=== PATIENT | male | born 1995 | race Caucasian/White ===

== ENCOUNTER 2021-02-02 08:42 | Emergency (ER) | payer SELFPAY ==
[2021-02-02 08:46] VITALS: BP 128/73; PULSE 85; RESP 18; TEMP 36.5; O2SAT 98
--- NOTE | 2021-02-02 08:54 | ED.BACK ---
HPI - Back Pain/Injury General Chief Complaint: Back Pain/Injury Stated Complaint: Back Pain Time Seen by Provider: 02/02/21 08:54 Source: patient, RN notes reviewed and old records reviewed Mode of arrival: ambulatory Limitations: no limitations History of Present Illness HPI Narrative: 25-year-old male presents to the [facility] with complaints of left lower back pain. Patient states on Tuesday, 3 days ago was dragging a deer out of the wood when he felt a pull in his back. Denies abdominal pain or chest pain. No numbness or tingling in his extremities. No loss or retention of bowel or bladder. No saddle anesthesia. Related Data Allergies Allergy/AdvReac Type Severity Reaction Status Date / Time Penicillins Allergy Unknown Swelling Verified 02/02/21 08:48 of Lip/Tongue/Throat Review of Systems Review of Systems: All systems reviewed & are unremarkable except as noted in HPI and below Constitutional: Constitutional: Reports no additional constitutional complaints, Denies chills and Denies fever(s) Eyes: Eyes: Reports no additional eye complaints ENT: Reports system reviewed and no additional complaints, except as documented Cardiovascular: Cardiovascular: Reports no additional cardiovascular complaints, Denies chest pain and Denies radiating jaw, neck or arm pain Respiratory: Respiratory: Reports no additional respiratory complaints, Denies cough and Denies dyspnea Gastrointestinal: Gastrointestinal: Reports no additional gastrointestinal complaints Genitourinary: Genitourinary: Reports no additional male genitourinary complaints, Denies oliguria, Denies urinary frequency and Denies urinary incontinence Musculoskeletal: Musculoskeletal: Reports as per HPI and Reports back pain Integumentary/Breasts: Skin/Breast: Reports system reviewed and no additional complaints, except as docu Neurologic: Reports system reviewed and no additional complaints, except as documented Psychiatric: Psychiatric: Reports no additional psychiatric complaints Allergic/Immunologic: Allergic/Immunologic: Reports no additional allergic/immunologic complaints PMF Past Medical History Medical History Anxiety Depression Enlarged adenoids Previous known suicide attempt Self-mutilation Cutter Tonsillitis Surgical History Surgical History History of tonsillectomy Social History Social History Smoking status: Current every day smoker Alcohol intake: never Substance use: current Substance use type: marijuana Comments At the time of my signature, I reviewed and agree with the nursing past medical, surgical, social, and family history. There is no relevant family history pertinent to the patient complaint. Exam Const: General: healthy appearing, no acute distress and alert Nutritional Appearance: well nourished Orientation/consciousness: patient oriented x3 Limitations: no limitations HENMT: Head: normal to inspection Ears: external ears normal Eyes: Pupils: Equal, round and reactive pupils present Neck: Neck: normal visual inspection, no lymphadenopathy and no meningeal signs Chest: Chest palpation & inspection: normal inspection of the chest Resp: Effort & Inspection: normal respiratory effort Auscultation: clear to auscultation bilaterally Cardio: Rate: regular rate Rhythm: regular rhythm GI: GI Palp: Yes Soft to palpation, No Tenderness to palpation present (GI), No Guarding due to palpation present (GI) and No Rigid due to palpation Back/Spine/Pelvis: Back: no CVA tenderness Cervical Spine: normal cervical lordosis Thoracic/Lumbar Spine: thoracic and lumbar spine normal to inspection, thoraco-lumbar spasm on the left and on the left greater than right, No lumbar spinal tenderness and straight leg raise positive (Pain with lifting left leg left lumbar
== END 2021-02-02 09:07 | disposition home or self-care (01) ==
PROVIDERS: Emergency Provider Nurse Practitioner
DX: S39.012A Strain of muscle, fascia and tendon of lower back, initial encounter (principal); X50.0XXA Overexertion from strenuous movement or load, initial encounter; F17.200 Nicotine dependence, unspecified, uncomplicated
CPT/HCPCS: 99213; G0463

== ENCOUNTER 2022-09-26 08:16 | Emergency (ER) | payer BC, SELFPAY ==
[2022-09-26 08:27] VITALS: BP 153/87; PULSE 77; RESP 16; TEMP 36.7; O2SAT 99
--- NOTE | 2022-09-26 08:28 | ED.UPPEXIN ---
HPI - Extremity Injury (Upper) General Chief Complaint: Extremity Injury, Upper Stated Complaint: right shoulder pain Time Seen by Provider: 09/26/22 08:21 Source: patient Mode of arrival: ambulatory Limitations: no limitations History of Present Illness HPI narrative: Patient is a 26-year-old male that presents with right neck and shoulder pain for 3 days. Patient states it hurts to turn head to the right or left right arm up. Patient has taken Aleve and ibuprofen with no relief. Denies any weakness, numbness, tingling to arm or hand. Denies any headache, fever, chills, vision changes, nausea, vomiting, diarrhea. Related Data Allergies Allergy/AdvReac Type Severity Reaction Status Date / Time Penicillins Allergy Unknown Swelling Verified 09/26/22 08:22 of Lip/Tongue/Throat Review of Systems Review of Systems: All systems reviewed & are unremarkable except as noted in HPI and below Constitutional: Constitutional: Denies body ache(s), Denies chills, Denies fatigue, Denies fever(s), Denies headache(s), Denies malaise and Denies weakness Eyes: Eyes: Denies blurry vision, Denies irritation and Denies loss of vision ENT: Denies otalgia, Denies headache(s), Denies nasal discharge, Denies sinus pain and Denies sore throat Cardiovascular: Cardiovascular: Denies chest pain, Denies irregular heart rhythm and Denies dyspnea Respiratory: Respiratory: Denies dyspnea Gastrointestinal: Gastrointestinal: Denies abdominal pain, Denies melena, Denies hematochezia, Denies diarrhea, Denies nausea and Denies vomiting Musculoskeletal: Musculoskeletal: Denies back pain, Denies myalgias and Denies arthralgias Integumentary/Breasts: Skin/Breast: Denies pruritus and Denies rash Neurologic: Denies headache(s), Denies loss of vision and Denies weakness Psychiatric: Psychiatric: Reports no additional psychiatric complaints Endocrine: Endocrine: Denies fatigue PMFSH Past Medical History Medical History Anxiety Depression Enlarged adenoids Previous known suicide attempt Self-mutilation Cutter Tonsillitis Surgical History Surgical History History of tonsillectomy Social History Social History (Reviewed 02/02/21 @ 09:08 by GERTRUDE Hardy Smoking status: Current every day smoker Alcohol intake: never Substance use: current Substance use type: marijuana Comments At time of signature, agree with nursing past medical, surgical, social and family history. There is no relevant family history pertinent to the presenting complaint. Exam Const: General: cooperative, healthy appearing, comfortable, no acute distress and well nourished Nutritional Appearance: well nourished Orientation/consciousness: patient oriented x3 Limitations: no limitations HENMT: Head: normal to inspection, normocephalic and atraumatic Ears: hearing grossly normal bilaterally and external ears normal Face/Nose/Sinus: Normal external nose present, normal facial exam and face symmetric Face and sinus: normal facial exam and face symmetric Mouth: Yes lip normal Eyes: General: appearance normal, both eyes and all related structures Alignment and Position: alignment normal and position normal Periorbital: periorbital findings normal Eyelids: eyelids normal Pupils: Equal, round and reactive pupils present EOM: EOMs intact bilaterally Neck: Neck: normal visual inspection, full ROM and supple Chest: Chest palpation & inspection: normal inspection of the chest Resp: Effort & Inspection: normal respiratory effort and able to speak in complete sentences Auscultation: clear to auscultation bilaterally Cardio: Rate: regular rate Rhythm: regular rhythm Heart sounds: S1 normal heart sound present and S2 normal heart sound present GI: Inspection: normal to inspection Back/Spine/Pelvis: Cervical Spine: No cervical muscular tenderness, pain wi
== END 2022-09-26 08:47 | disposition home or self-care (01) ==
PROVIDERS: Emergency Provider Nurse Practitioner Family; PCP Emergency Medicine
DX: M54.12 Radiculopathy, cervical region (principal); F17.200 Nicotine dependence, unspecified, uncomplicated; F12.90 Cannabis use, unspecified, uncomplicated
CPT/HCPCS: 99213; G0463

== ENCOUNTER 2023-09-20 08:40 | Emergency (ER) | payer BC, SELFPAY ==
[2023-09-20 08:58] VITALS: BP 135/79; PULSE 87; RESP 18; TEMP 37.6; O2SAT 99
--- NOTE | 2023-09-20 09:11 | ED.URI ---
HPI - URI/Sore Throat General Chief Complaint: Upper Respiratory Infection Stated Complaint: chills,fever,bodyaches Time Seen by Provider: 09/20/23 09:08 Source: patient and RN notes reviewed Mode of arrival: ambulatory Limitations: no limitations History of Present Illness HPI Narrative: 27-year-old male presents concern for chills, fever, body aches, cough, nasal congestion, rhinorrhea. Reports his test positive for COVID. He took Tylenol, tried NyQuil but he vomited up MD elicited complaint: cough and nasal congestion Related Data Allergies Allergy/AdvReac Type Severity Reaction Status Date / Time Penicillins Allergy Severe Swelling Verified 09/20/23 08:52 of Lip/Tongue/Throat Review of Systems Review of Systems: CONSTITUTIONAL: Reports malaise, chills, sweats, fever. EYES: Denies visual changes, redness, or discharge. ENT: Reports rhinorrhea, congestion, and sore throat. CARDIOVASCULAR: Denies chest pain, palpitations, or edema. RESPIRATORY: Reports cough. Denies dyspnea. GASTROINTESTINAL: Denies abdominal pain, nausea, vomiting, diarrhea SKIN: Denies rash or itching. MUSCULOSKELETAL: Reports myalgia. NEUROLOGIC: Denies headache. All systems reviewed & are unremarkable except as noted in HPI and below PMFSH Past Medical History Medical History Anxiety Depression Enlarged adenoids Previous known suicide attempt Self-mutilation Cutter Tonsillitis Surgical History Surgical History History of tonsillectomy Social History Social History Smoking status: Current every day smoker Alcohol intake: never Substance use: current Substance use type: marijuana Comments At time of signature, agree with nursing past medical, surgical, social and family history. There is no relevant family history pertinent to the presenting complaint Exam Narrative: GENERAL: Nontoxic-appearing, well-nourished, and in no acute distress. HEAD: Normocephalic EYES: PERRLA, conjunctivae clear ENT: Nares clear, clear discharge. Mucous membranes moist. TM pearly palomo with dull light reflex bilaterally; no tragal tenderness. Oropharynx not erythematous without lesions. Tonsils not enlarged and without exudate, no drooling, no hoarseness, no trismus, uvula midline. NECK: Supple. No lymphadenopathy CHEST: Clear to auscultation, breath sounds equal. No wheezing, rhonchi, rales, or stridor. No respiratory distress, speaks in full sentences. HEART: Regular rate and rhythm. No murmur heard. SKIN: Warm, dry, no rash. NEURO: Alert and oriented x3. PSYCH: Normal mood and affect Course Course Emergency Course: Patient is aware of diagnosis, understands and agrees to treatment plan. Anticipatory guidance given. Patient agrees to follow-up as directed and is aware of reasons to seek care at the emergency department. Portions of this record may have been created with voice recognition software Level of Care: Express Care Visit Vital Signs Vital signs: Vital Signs Temperature 99.6 F 09/20/23 08:58 Pulse Rate 87 09/20/23 08:58 Respiratory Rate 18 09/20/23 08:58 Blood Pressure 135/79 09/20/23 08:58 Pulse Oximetry 99 09/20/23 08:58 Oxygen Delivery Room Air 09/20/23 08:58 Temperature 99.6 F 09/20/23 08:58 Pulse Rate 87 09/20/23 08:58 Respiratory Rate 18 09/20/23 08:58 Blood Pressure 135/79 09/20/23 08:58 Pulse Oximetry 99 09/20/23 08:58 Oxygen Delivery Room Air 09/20/23 08:58 Reviewed. MDM - URI/Sore Throat MDM Narrative Medical decision making narrative: Differential diagnosis considered: Oneal virus, strep pharyngitis, allergic rhinitis, upper respiratory tract infection, sinusitis, rhinosinusitis, nasopharyngitis. viral pharyngitis, otitis media, otitis externa, pneumonia, bronchitis, viral cough syndrome, dianelys
[2023-09-20 09:44] LABS: EDINFLUASCREEN Negative; EDINFLUBSCREEN Negative
== END 2023-09-20 09:22 | disposition home or self-care (01) ==
PROVIDERS: Emergency Provider Nurse Practitioner
DX: U07.1 COVID-19 (principal); F17.200 Nicotine dependence, unspecified, uncomplicated; F12.90 Cannabis use, unspecified, uncomplicated
CPT/HCPCS: 87426; 87804; 99213; G0463

== ENCOUNTER → 2023-11-30 09:04 | Outpatient (CLI) | payer BC, SELFPAY ==
--- NOTE | ~2023-11-30 | XR_ITS ---
Left Shoulder Technique: AP and scapular Y views were obtained. Clinical History: Pain Findings: No fracture or dislocation is seen. Osseous alignment is anatomic. The glenohumeral and acr omioclavicular joint spaces are preserved. Soft tissues are unremarkable. Impression: Unremarkable left shoulder radiographs. Reviewed, dictated and finalized at [facility]. Impression: Unremarkable left shoulder radiographs.
--- NOTE | ~2023-11-30 | XR_ITS ---
EXAMINATION: XR scapula LT DATE: 11/30/2023 09:21 INDICATION: Left shoulder pain. TECHNIQUE: 2 views of left scapula were obtained. COMPARISON: None. FINDINGS: Alignment is normal. No fracture. There is mild osteoarthritis of acromioclavicular joint. IMPRESSION: 1. Mild osteoarthritis of acromioclavicular joint. Reviewed, dictated and finalized at location A.
== END ==
LOC: EXPCRAD 09:07
PROVIDERS: PCP Emergency Medicine; Visit Provider Emergency Medicine
DX: M19.012 Primary osteoarthritis, left shoulder (principal)
CPT/HCPCS: 73010; 73030

== ENCOUNTER 2024-04-29 11:14 | Emergency (ER) | payer BC, SELFPAY ==
[2024-04-29 11:26] VITALS: BP 112/86; PULSE 108; RESP 18; TEMP 37.4; O2SAT 97
[2024-04-29 11:31] VITALS: PULSE 108; RESP 18; O2SAT 97
--- NOTE | 2024-04-29 11:32 | ED.URI ---
HPI - URI/Sore Throat General Chief Complaint: Upper Respiratory Infection Stated Complaint: Cough/Sinus Source: patient and RN notes reviewed Mode of arrival: ambulatory Limitations: no limitations History of Present Illness HPI Narrative: 28-year-old male presents with concern for cough, congestion, chills, headache, vomiting. Reports symptoms started yesterday. Hurts he has been taking DayQuil and MD elicited complaint: fever and cough Related Data Home Medications ?Medication ?Instructions ?Recorded ?Confirmed ?Last Taken ?Type No Home Medications 04/29/24 Unknown History Allergies Allergy/AdvReac Type Severity Reaction Status Date / Time Penicillins Allergy Severe Swelling Verified 04/29/24 11:27 of Lip/Tongue/Throat Review of Systems Review of Systems: CONSTITUTIONAL: Reports malaise, chills EYES: Denies visual changes, redness, or discharge. ENT: Reports rhinorrhea, congestion CARDIOVASCULAR: Denies chest pain, palpitations, or edema. RESPIRATORY: Reports cough. Denies dyspnea. GASTROINTESTINAL: Denies abdominal pain, nausea, diarrhea. Reports an episode of vomiting SKIN: Denies rash or itching. MUSCULOSKELETAL: Reports myalgia. NEUROLOGIC: Reports headache. All systems reviewed & are unremarkable except as noted in HPI and below PMFSH Past Medical History Medical History Anxiety Depression Enlarged adenoids Previous known suicide attempt Self-mutilation Cutter Tonsillitis Surgical History Surgical History History of tonsillectomy Social History Social History Smoking status: Current every day smoker Alcohol intake: never Substance use: current Substance use type: marijuana Comments At time of signature, agree with nursing past medical, surgical, social and family history. There is no relevant family history pertinent to the presenting complaint Exam Narrative: GENERAL: Nontoxic-appearing, well-nourished, and in no acute distress. HEAD: Normocephalic EYES: PERRLA, conjunctivae clear ENT: Nares clear, clear discharge. Mucous membranes moist. TM pearly palomo with dull light reflex bilaterally; no tragal tenderness. Oropharynx not erythematous without lesions. Tonsils not enlarged and without exudate, no drooling, no hoarseness, no trismus, uvula midline. NECK: Supple. No lymphadenopathy CHEST: Clear to auscultation, breath sounds equal. No wheezing, rhonchi, rales, or stridor. No respiratory distress, speaks in full sentences. HEART: Regular rate and rhythm. No murmur heard. SKIN: Warm, clammy, no rash. NEURO: Alert and oriented x3. PSYCH: Normal mood and affect Course Course Emergency Course: Patient is aware of diagnosis, understands and agrees to treatment plan. Anticipatory guidance given. Patient agrees to follow-up as directed and is aware of reasons to seek care at the emergency department. Portions of this record may have been created with voice recognition software Level of Care: Express Care Visit Vital Signs Vital signs: Vital Signs Temperature 99.3 F 04/29/24 11:26 Pulse Rate 108 H 04/29/24 11:26 Respiratory Rate 18 04/29/24 11:26 Blood Pressure 112/86 04/29/24 11:26 Pulse Oximetry 97 04/29/24 11:26 Oxygen Delivery Room Air 04/29/24 11:26 Temperature 99.3 F 04/29/24 11:26 Pulse Rate 108 H 04/29/24 11:26 Respiratory Rate 18 04/29/24 11:26 Blood Pressure 112/86 04/29/24 11:26 Pulse Oximetry 97 04/29/24 11:26 Oxygen Delivery Room Air 04/29/24 11:26 Reviewed. MDM - URI/Sore Throat MDM Narrative Medical decision making narrative: Differential diagnosis considered: Oneal virus, strep pharyngitis, allergic rhinitis, upper respiratory tract infection, sinusitis, rhinosinusitis, nasopharyngitis. viral pharyngitis, otitis media, otitis externa, pneumonia, bronchitis, viral cough syndrome, viral syndrome, and influenza. Exam findings show no acute concerns or changes; patient is non-toxic appearing and is in no distress. Patient is appropriate for outpatient treatment and follow-up. Lab Data Attestation: I reviewed the patient's lab results. Critical Care Time Critical Care Time Critical Care Time: No Discharge Plan Discharge Clinical Impression: Influenza A Patient Disposition: Home, Self-Care Condition: Stable Instructions: Influenza (ED) Additional Instructions: -Take strict precautions to prevent the spread of your virus. Be diligent about covering your cough (even when you are alone) and washing your hands frequently. -You may contagious until you have been symptom and/or fever free for 24 hours without fever reducing medicine -Alternate Ibuprofen and Tylenol for pain and fever relief (per package directions) -Some Cough medicines may make you drowsy, do not take it if you have to make important decisions, drive, or work. -Drink plenty of fluid - drink fluid with electrolytes such as Gatorade or other oral re-hydration solution. Avoid caffeine, which can make dehydration worse. -Get plenty of rest to help your body heal. -Use a cool mist humidifier for chest and nasal congestion. -Eat RAW honey or use cough drops to ease throat discomfort -Do not smoke or expose children to secondhand smoke -Wash your hands frequently. -Please follow-up with your primary care doctor in the next 1-2 days if your symptoms do not improve. -If you have any worsening of symptoms or any other concerns please go to the ED immediately. -Please take medications as prescribed and continue taking your home medications as usual. Patient Language: Occitan Prescriptions: New pseudoephedrine HCl [12 Hour Decongestant] 120 mg tablet extended release 120 mg PO Q12H PRN (Reason: nasal congestion) Qty: 20 0RF promethazine-DM 6.25-15 mg/5 mL syrup 5 ml PO Q4-6H PRN (Reason: cough) Qty: 120 0RF No Action No Home Medications Follow-up/Referrals: Nazario Segundo MD [Primary Care Provider] - Stand Alone Forms: Work/School Release IP Time of Disposition: 11:48
[2024-04-29 11:49] LABS: EDCOVIDSCREEN Negative (Negative); EDINFLUASCREEN Positive (Negative); EDINFLUBSCREEN Negative (Negative)
== END 2024-04-29 12:00 | disposition home or self-care (01) ==
PROVIDERS: Emergency Provider Nurse Practitioner; PCP Emergency Medicine
DX: J10.1 Influenza due to other identified influenza virus with other respiratory manifestations (principal); Z20.822 Contact with and (suspected) exposure to COVID-19; F17.200 Nicotine dependence, unspecified, uncomplicated; F12.90 Cannabis use, unspecified, uncomplicated
CPT/HCPCS: 87426; 87804; 99213; G0463

== ENCOUNTER 2025-01-04 09:35 | Outpatient (CLI) | payer BC, SELFPAY ==
--- OUTSIDE RECORDS SUMMARY | 2024-02-29 05:00 | XMS_ITS ---
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 Name Role Phone Didier Morelos Unavailable [phone] Harpal Lee Unavailable Unavailable ALLERGIES Allergen (clinical drug ingredient) Drug/Non Drug Allergy documented on EMR Reaction Allergy Type Onset Date Status Information temporarily unavailable Penicillin Unknown Drug Allergy Active RESULTS Component Value Reference Range Notes X ray : Cervical Spine 7 vie ws, AP, Lateral, Swimmers, Obliques, Flexion and Extension Reviewed date:02/29/2024 12:54:20 PM Interpretation:[id number] Performing Lab: Notes/Report: 1135 REASON FOR REFERRAL Reason DIAGNOSES: neck and shoulder strain, thoracic paraspinal enthesopathy 3 times per week for 3 weeks eval and treat, exercise, modalities per therapist's discretion; HEP Referral Organization [facility] Referring Provider First Name Didier Referring Provider Last Name Tamy Referring Provider Speciality Orthopedic Surgery Referred Provider Specialty Physical The marty Referral Priority Routine REASON FOR VISIT Carlos Cruz / , Mónica Harrison / , Dr. Harpal Lee / , DOI: 11/28/2023 / Claim # [id number], [place] - neck MEDICATIONS Medication SIG (Take, Route, Frequency, Duration) Notes Start Date End Date Status Gabapentin Active Cyclobenzaprine HCl 10 MG 1 tablet Orall y three times daily as needed for spasms. MAY CAUSE GROGGINESS/DROWSINESS for 30 day(s) 02/29/2024 Active Ibuprofen 800 MG 1 tablet with food o r milk as needed Orally every 8 hrs for 90 days 02/29/2024 Active VITAL SIGNS BMI 34.86 kg/m2 02/29/2024 Height 71 in 02/29/2024 Weight 250 lbs 02/29/2024 Encounters Encounter Location Date Provider Diagnosis [facility] [address] [place] [address] 02/29/2024 Didier Morelos Neck strain S16.1XXA ; Left shoulder strain S46.912A ; Strain of left trapezius muscle, initial encounter S46.812A and Thoracic back pain M54.6 ASSESSMENTS Encounter Date Diagnosis Assessment Notes Treatment Notes Treatment Clinical Notes Section Notes 02/29/2024 Neck strain (ICD-10 - S16.1XXA) <b>IMPRESSION:</b> Neck and shoulder strains Trapezius and paraspinal muscle strain Thoracic myofasciitis <b>PLAN:</b> It is my opinion that the prevailing factor in the patient's present complaints is his work injury. It is my opinion that he has not reached MMI. It is my opinion that he is in need of additional medical treatment as it relates to his injury. It is my recommendation that he undergo TPI's to the L. medial scapular musculature to include the rhomboids and paraspinal musculature. The patient agreed. He received 3 injections of 0.5 cc of Kenalog and 0.5 cc of Marcaine to the major trigger point sites. He noted improvement in his complaints following the injections. He will apply moist heat to the region. He will start outpatient PT and perform home stretching. He will use Flexeril 10 mg QHS and Ibuprofen 800 mg BID. He can return to work with a 15 pound lifting limit. All of my opinions have been expressed to a reasonable degree of medical certainty. [facility]/clm 02/29/2024 Left shoulder strain (ICD-10 - S46.912A) <b>IMPRESSION:</b> Neck and shoulder strains Trapezius and paraspinal muscle strain Thoracic myofasciitis <b>PLAN:</b> It is my opinion that the prevailing factor in the patient's present complaints is his work injury. It is my opinion that he has not reached MMI. It is my opinion that he is in need of additional medical treatment as it relates to his injury. It is my recommendation that he undergo TPI's to the L. medial scapular musculature to include the rhomboids and paraspinal musculature. The patient agreed. He received 3 injections of 0.5 cc of Kenalog and 0.5 cc of Marcaine to the major trigger point sites. He noted improvement in his complaints following the injections. He will apply moist heat to the region. He will start outpatient PT and perform home stretching. He will use Flexeril 10 mg QHS and Ibuprofen 800 mg BID. He can return to work with a 15 pound lifting limit. All of my opinions have been expressed to a reasonable degree of medical certainty. [facility] 02/29/2024 Strain of left trapezius muscle, initial encounter (ICD-10 - S46.812A) <b>IMPRESSION:</b> Neck and shoulder strains Trapezius and paraspinal muscle strain Thoracic myofasciitis <b>PLAN:</b> It is my opinion that the prevailing factor in the patient's present complaints is his work injury. It is my opinion that he has not reached MMI. It is my opinion that he is in need of additional medical treatment as it relates to his injury. It is my recommendation that he undergo TPI's to the L. medial scapular musculature to include the rhomboids and paraspinal musculature. The patient agreed. He received 3 injections of 0.5 cc of Kenalog and 0.5 cc of Marcaine to the major trigger point sites. He noted improvement in his complaints following the injections. He will apply moist heat to the region. He will start outpatient PT and perform home stretching. He will use Flexeril 10 mg QHS and Ibuprofen 800 mg BID. He can return to work with a 15 pound lifting limit. All of my opinions have been expressed to a reasonable degree of medical certainty. [facility] 02/29/2024 Thoracic back pain (ICD-10 - M54.6) <b>IMPRESSION:</b> Neck and shoulder strains Trapezius and paraspinal muscle strain Thoracic myofasciitis <b>PLAN:</b> It is my opinion that the prevailing factor in the patient's present complaints is his work injury. It is my opinion that he has not reached MMI. It is my opinion that he is in need of additional medical treatment as it relates to his injury. It is my recommendation that he undergo TPI's to the L. medial scapular musculature to include the rhomboids and paraspinal musculature. The patient agreed. He received 3 injections of 0.5 cc of Kenalog and 0.5 cc of Marcaine to the major trigger point sites. He noted improvement in his complaints following the injections. He will apply moist heat to the region. He will start outpatient PT and perform home stretching. He will use Flexeril 10 mg QHS and Ibuprofen 800 mg BID. He can return to work with a 15 pound lifting limit. All of my opinions have been expressed to a reasonable degree of medical certainty. [facility]/clm 02/29/2024 Other <b>IMPRESSION:</b> Neck and shoulder strains Trapezius and paraspinal muscle strain Thoracic myofasciitis <b>PLAN:</b> It is my opinion that the prevailing factor in the patient's present complaints is his work injury. It is my opinion that he has not reached MMI. It is my opinion that he is in need of additional medical treatment as it relates to his injury. It is my recommendation that he undergo TPI's to the L. medial scapular musculature to include the rhomboids and paraspinal musculature. The patient agreed. He received 3 injections of 0.5 cc of Kenalog and 0.5 cc of Marcaine to the major trigger point sites. He noted improvement in his complaints following the injections. He will apply moist heat to the region. He will start outpatient PT and perform home stretching. He will use Flexeril 10 mg QHS and Ibuprofen 800 mg BID. He can return to work with a 15 pound lifting limit. All of my opinions have been expressed to a reasonable degree of medical certainty. [facility]/clm PLAN OF TREATMENT Medication Medication Name Sig Start Date Stop Date Notes Cyclobenzaprine HCl 10 MG 1 tablet Orall y three times daily as needed for spasms. MAY CAUSE GROGGINESS/DROWSINESS for 30 day(s) 02/29/2024 Ibuprofen 800 MG 1 tablet with food o r milk as needed Orally every 8 hrs for 90 days 02/29/2024 Referrals Referral Date Details DIAGNOSES: neck and shoulder strain, thoracic paraspinal enthesopathy 3 times per week for 3 weeks eval and treat, exercise, modalities per therapist's discretion; HEP Progress Notes * Examination Category Sub-Category Detail Notes Category Not es X-ray Interpretation Seven v iews C-spine reveal well preserved disc space height. No evidence of fracture or spondylolisthesis. The oblique images reveal patent neural foramina bilaterally. Flexion/extension films reveal no instability. General Examination GENERAL: Patient is a lert and cooperative. He moves about the room without difficulty. He does not walk with a list/limp NECK: Tension involving L. paraspinal and trapezius musculature. Cervical ROM near normal. Spurling's test negative NEUROLOGIC: UE neurologic exam r eveals symmetric DTR's, intact sensation, 5+/5+ motor strength. Heather's sign negative. LE neurologic exam reveals symmetric DTR's, intact sensation, 5+/5+ motor strength. SLR testing negative SKIN: No evidence of skin rashes or dermal lesions MUSCULOSKELETAL: Thoracic exam reveal s focal tenderness to palpation along the medial portion of the clavicle in the central and inferior portions. Direct pressure along these sites elicits reproduction of his complaints. Lumbar exam reveals no tenderness to palpation, no spasm, full ROM JOINTS: Shoulder ROM normal. Impingement sign negative. Shoulder girdle strength 5+/5+. No tenderness to palpation over AC joint or subacromial space History and Physical Notes * HPI (History of Present Illness) Category Sub-Category Detail Notes Category Not es Neck Vilma Harding is a 28-year-old white male evaluated at your request today, 02/29/2024 for the purpose of establishing a current diagnosis, to comment on the need for further diagnostic or medical measures and to determine if the patient can work with or without restrictions. This report is compiled through the patient's verbal history, review of the supplied medical records and diagnostic studies and the patient's physical examination. Mr. Harding is not accompanied by any friends or family. I certify there is no conflict of interest in performing this examination. Mr. 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 He states that he flipped a metal box over on a table, strained and felt sharp pain involving the L. posterior shoulder. He reports that those complaints increased in severity and the stabbing pain involving the L. posterior shoulder blade persisted. He reports that he informed his employer. He reports that he was referred to Dr. Lee in [place], who examined him, performed x-rays and referred him to PT. He states that it was Dr. Lee's opinion over time that he needed to undergo evaluation by a spine surgeon as it was suspected that his complaints were more radicular in origin. <b><u>Present Complaints</b></u> He describes his complaints as severe 6/10, sharp, aching pain involving mostly the L. posterior shoulder blade region. Symptoms are worsened with lying down, resting, coughing, sneezing, bending and tend to be improved with no position. There has been no loss of bowel/bladder function. His ability to walk long distances has not been affected. He continues on Gabapentin to moderate his complaints. He is presently working in a limited capacity with a lifting limit of 15 pounds. <b><u>Review of Supplied Records</b></u> Records from [facility] indicate that Mr. Harding was evaluated by Kiarra Vaughn NP on 01/25/2024. He was diagnosed with pain in the L. shoulder. He presented with L. shoulder pain after a work injury 2 months ago. He stated that he was building boxes of metal that weighed 100-200 pounds each. He was flipping a box over and felt sharp pain and a pop in the L. shoulder blade. He thought it would improve over time, which it did slightly, but persisted. He notified his employer. He presented with complaints of 5/10 pain. His examination revealed tenderness over the distal part of the scapula over the musculature. Popping felt with movement of that area. No neural deficits were noted. X-rays of the L. shoulder were ordered. He was referred to PT. He was prescribed Mobic. He was told to return to the office to be evaluated by Dr. Lee. Note from Dr. Lee dated 02/22/2024 indicates that Mr. Harding presented for re-evaluation. He reported that he stopped Meloxicam because he developed blood in his stool. He rated his pain as 6/10. Pain was located in the medial scapula. He felt the Spurling's test was positive, however no neural deficits. Shoulder ROM was normal. It was felt his symptoms were probably cervical in origin. It was recommended that he be evaluated by an orthopedic spine surgeon. Work Status Report from 02/22/2024 indicates that he needed an evaluation by an orthopedic spine surgeon. He could return to work with a 15 pound lifting limit. Consultation Request Notes Referral Date Referring Provider Referred Provider Not es 02/29/2024 Didier Morelos , DIAGNOSES: n tee and shoulder strain, thoracic paraspinal enthesopathy 3 times per week for 3 weeks eval and treat, exercise, modalities per therapist's discretion; HEP
--- OUTSIDE RECORDS SUMMARY | 2024-03-29 06:20 | XMS_ITS ---
Author Organization [facility] [address] [place] [address] Care Team Providers Care Credit Risk Officer Name Role Phone Tamy, Didier Unavailable [phone] Harpal Lee Unavailable Unavailable ALLERGIES Allergen (clinical drug ingredient) Drug/Non Drug Allergy documented on EMR Reaction Allergy Type Onset Date Status Information temporarily unavailable Penicillin Unknown Drug Allergy Active REASON FOR REFERRAL Reason DIAGNOSES: neck and shoulder strain, neck pain 3 times per week for 3 weeks work conditioning Referral Organization [facility] Referring Provider First Name Didier Referring Provider Last Name Tamy Referring Provider Speciality Orthopedic Surgery Referred Provider Specialty Physical The rapy Referral Priority Routine REASON FOR VISIT Carlos Cruz / , Mónica Harrison / , f/u after PT MEDICATIONS Medication SIG (Take, Route, Frequency, Duration) Notes Start Date End Date Status Gabapentin Not-Takin g Ibuprofen 800 MG 1 tablet with food o r milk as needed Orally every 8 hrs for 90 days 02/29/2024 Active Cyclobenzaprine HCl 10 MG 1 tablet Orall y three times daily as needed for spasms. MAY CAUSE GROGGINESS/DROWSINESS for 30 day(s) 02/29/2024 Active VITAL SIGNS BMI 34.86 kg/m2 03/29/2024 Height 71 in 03/29/2024 Weight 250 lbs 03/29/2024 Encounters Encounter Location Date Provider Diagnosis [facility] [address] [place] [address] 03/29/2024 Didier Morelos Strain of other muscles, fascia and tendons at shoulder and upper arm level, left arm, subsequent encounter S46.812D ; Pain in thoracic spine M54.6 ; Strain of left shoulder, subsequent encounter S46.912D and Strain of muscle, fascia and tendon at neck level, subs S16.1XXD ASSESSMENTS Encounter Date Diagnosis Assessment Notes Treatment Notes Treatment Clinical Notes Section Notes 03/29/2024 Strain of other muscles, fascia and tendons at shoulder and upper arm level, left arm, subsequent encounter (ICD-10 - S46.812D) <b>IMPRESSION:</b> Resolving neck and shoulder strains. Resolving trapezius muscle enthesopathy. Resolving thoracic myofasciitis. <b>PLAN:</b> It is my recommendation the patient continue on ibuprofen and Flexeril. It is my recommendation he can return to work with a 35 to 40 pound lifting limit. He will advance home exercises and start in work conditioning. We will see him back in the office in 3 weeks; hopefully at that time he can be returned to regular work duties. [facility]/cp 03/29/2024 Pain in thoracic spine (ICD-10 - M54.6) <b>IMPRESSION:</b> Resolving neck and shoulder strains. Resolving trapezius muscle enthesopathy. Resolving thoracic myofasciitis. <b>PLAN:</b> It is my recommendation the patient continue on ibuprofen and Flexeril. It is my recommendation he can return to work with a 35 to 40 pound lifting limit. He will advance home exercises and start in work conditioning. We will see him back in the office in 3 weeks; hopefully at that time he can be returned to regular work duties. [facility]/cp 03/29/2024 Strain of left shoulder, subsequent encounter (ICD-10 - S46.912D) <b>IMPRESSION:</b> Resolving neck and shoulder strains. Resolving trapezius muscle enthesopathy. Resolving thoracic myofasciitis. <b>PLAN:</b> It is my recommendation the patient continue on ibuprofen and Flexeril. It is my recommendation he can return to work with a 35 to 40 pound lifting limit. He will advance home exercises and start in work conditioning. We will see him back in the office in 3 weeks; hopefully at that time he can be returned to regular work duties. [facility]/cp 03/29/2024 Strain of muscle, fascia and tendon at neck level, subs (ICD-10 - S16.1XXD) <b>IMPRESSION:</b> Resolving neck and shoulder strains. Resolving trapezius muscle enthesopathy. Resolving thoracic myofasciitis. <b>PLAN:</b> It is my recommendation the patient continue on ibuprofen and Flexeril. It is my recommendation he can return to work with a 35 to 40 pound lifting limit. He will advance home exercises and start in work conditioning. We will see him back in the office in 3 weeks; hopefully at that time he can be returned to regular work duties. [facility]/cp PLAN OF TREATMENT Referrals Referral Date Details DIAGNOSES: neck and shoulder strain, neck pain 3 times per week for 3 weeks work conditioning Progress Notes * Examination Category Sub-Category Detail Notes Category Not es General Examination GENERAL: He moves abo ut the room without difficulty. He does not walk with a list/limp NECK: Mild tension, but no spasm. Cervical ROM near normal NEUROLOGIC: Upper extremity neur ologic examination reveals 5+ motor strength, symmetric reflexes and intact sensation. Landry sign is negative. Lower extremity neurologic examination reveals 5+ motor strength, symmetric reflexes and intact sensation. SLR testing is negative SKIN: There are no skin le sions or rashes, no evidence of herpes zoster MUSCULOSKELETAL: Thoracic exam reveal s mild tension involving the trapezius musculature. No significant trigger points. Lumbar exam reveals no tenderness to palpation. No spasm. ROM of the lumbar spine is near full HEENT: No masses, pupils ar e equally round and react to light and accommodation, the extraocular movements are intact, no nasal drainage, no lymphadenopathy History and Physical Notes * HPI (History of Present Illness) Category Sub-Category Detail Notes Category Not es Neck Vilma davis resents for reevaluation today, 03/29/2023. He was previously diagnosed with neck and shoulder strains, neck and shoulder pain, trapezius and paraspinal musculature strain and thoracic myofasciitis. The patient was started on a course of treatment, which included physical therapy, medications, trigger point injections and home exercise. He reports he is doing better. He complains of neck stiffness and ache with more vigorous activities. He has been performing his prior work duties, but does not work on large items, which require more substantial lifting Consultation Request Notes Referral Date Referring Provider Referred Provider Not es 03/29/2024 Didier Morelos , DIAGNOSES: n tee and shoulder strain, neck pain 3 times per week for 3 weeks work conditioning
--- OUTSIDE RECORDS SUMMARY | 2024-04-19 06:20 | XMS_ITS ---
Author Organization [facility] [address] [place] [address] Care Team Providers Care Behavioral Health Counselor Name Role Phone Didier Morelos Unavailable [phone] Harpal Lee Unavailable Unavailable ALLERGIES Allergen (clinical drug ingredient) Drug/Non Drug Allergy documented on EMR Reaction Allergy Type Onset Date Status Information temporarily unavailable Penicillin Unknown Drug Allergy Active REASON FOR VISIT Carlos Cruz / , Mónica Harrison / , f/u after work-conditioning MEDICATIONS Medication SIG (Take, Route, Frequency, Duration) Notes Start Date End Date Status Ibuprofen 800 MG 1 tablet with food o r milk as needed Orally every 8 hrs for 90 days 02/29/2024 Active Cyclobenzaprine HCl 10 MG 1 tablet Orall y three times daily as needed for spasms. MAY CAUSE GROGGINESS/DROWSINESS for 30 day(s) 02/29/2024 Active Gabapentin Not-Leonardo wayne VITAL SIGNS BMI 34.86 kg/m2 04/19/2024 Height 71 in 04/19/2024 Weight 250 lbs 04/19/2024 Encounters Encounter Location Date Provider Diagnosis [facility] [address] [place] [address] 04/19/2024 Didier Morelos Strain of muscle, fascia and tendon at neck level, subs S16.1XXD and Strain of other muscles, fascia and tendons at shoulder and upper arm level, left arm, subsequent encounter S46.812D ASSESSMENTS Encounter Date Diagnosis Assessment Notes Treatment Notes Treatment Clinical Notes Section Notes 04/19/2024 Strain of muscle, fascia and tendon at neck level, subs (ICD-10 - S16.1XXD) <b>IMPRESSION: </b> Resolved neck and shoulder strains Resolved back strain, thoracic myofasciitis, trapezius enthesopathy <b>PLAN:</b> It is my opinion the patient has reached MMI regarding his injury of 11/28/2023. He can return to full/unrestric ashley work duties. He is released from my care. He was strongly encouraged to continue with a home exercise program to maximize strength and endurance to reduce the risk of injury in the future. [facility]clm 04/19/2024 Strain of other muscles, fascia and tendons at shoulder and upper arm level, left arm, subsequent encounter (ICD-10 - S46.812D) <b>IMPRESSION: </b> Resolved neck and shoulder strains Resolved back strain, thoracic myofasciitis, trapezius enthesopathy <b>PLAN:</b> It is my opinion the patient has reached MMI regarding his injury of 11/28/2023. He can return to full/unrestric ashley work duties. He is released from my care. He was strongly encouraged to continue with a home exercise program to maximize strength and endurance to reduce the risk of injury in the future. [facility]/cl PLAN OF TREATMENT No Information Progress Notes * Examination Category Sub-Category Detail Notes Category Not es General Examination GENERAL: He moves abo ut the room without difficulty. He does not walk with a list/limp NECK: No tenderness to pal pation, no muscle spasm, full ROM NEUROLOGIC: UE and LE neurologic exam reveals symmetric DTR's, intact sensation, 5+/5+ motor strength. SLR testing negative MUSCULOSKELETAL: Thoracic exam reveal s no tenderness to palpation, no spasm. Lumbar exam reveals no tenderness to palpation, no spasm. Lumbar ROM reveals FF 100 degrees, EXT 35-40 degrees, SB 45-50 degrees JOINTS: Shoulder exam reveal s full ROM. Impingement sign negative. Shoulder girdle strength 5+/5+ History and Physical Notes * HPI (History of Present Illness) Category Sub-Category Detail Notes Category Not es Neck Vilma davis resents for re-evaluation today, 04/19/2024. He was previously diagnosed with neck and shoulder strains, back pain and thoracic myofasciitis. His treatment has included medications, PT, home exercise and TPI's. He reports that he has done well. He has advanced in his work-conditioning program. His last PT note from 04/18/2024 indicates he was able to tolerate complex and difficult exercises. His performance was not limited by pain or discomfort.
--- NOTE | 2025-01-04 | ECG_ITS ---
Test Date: 2025-01-04 10:27:23 Measurements Intervals [place] Rate: 62 P: 13 ND: 185 QRS: 42 QRSD: 90 T: 49 QT: 388 QTc: 395 Interpretive Statements SINUS RHYTHM BASELINE ARTIFACT- I, II, III, AVR, AVL, AVF NORMAL ECG No previous ECG available for comparison Electronically Signed On 01-04-2025 10:35:10 CDT by Christopher Burkett D.O.
--- OUTSIDE RECORDS SUMMARY | 2025-01-04 09:52 | XMS_ITS | Clinical Summary ---
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 Gender Identity Not on file Sexual Orientation Not on file Obstetrics History Last Filed Vital Signs Vital Sign Reading Time Taken Comments Blood Pressure 126/63 04/30/2016 11:18 AM ENGAGEMENT MGR Pulse 78 04/30/2016 11:18 AM ENGAGEMENT MGR Temperature 36.7 C (98.1 F) 04/30/2016 11:18 AM ENGAGEMENT MGR Respiratory Rate - - Oxygen Saturation 97% 04/30/2016 11:18 AM ENGAGEMENT MGR Inhaled Oxygen Concentration - - Weight 93.4 kg (206 lb) 04/30/2016 11:18 AM ENGAGEMENT MGR Height 180.3 cm (5' 11) 04/30/2016 11:18 AM ENGAGEMENT MGR Body Mass Index 28.73 04/30/2016 11:18 AM ENGAGEMENT MGR Plan of Treatment Health Maintenance Due Date Last Done Comments Depression Screening 1994 Hepatitis C Screening 1994 DTaP/Tdap/Td Vaccine (1 - Tdap) 2005 Varicella Vaccines (1 of 2 - 13+ 2-dose series) 12/26/2007 Hepatitis B Screening 2012 Regular Well Visit/Exam 18-64 2012 HPV Vaccines (1 - 3-dose SCD M series) 2021 Influenza Vaccine (#1) 2024 Pneumococcal vaccine <65 Aged Out No longer eligible based on patient's age to complete this topic Procedures Procedure Name Priority Date/Time Associated Diagnosis Comments MRI KNEE RIGHT WO CONTRAST Schedule Routine, Read Routine (OP Routine) 12/12/2024 3:36 PM CDT Right knee pain, unspecified chronicity from Last 3 Months Results * MRI Knee Right WO Contrast (12/12/2024 3:36 PM CDT) Anatomical Region Laterality Modality Lower Extremities Right Magnetic Reson ance 12/13/2024 7:00 AM CDT Narrative 12/13/2024 7:07 AM CDT EXAM DESCRIPTION: MRI KNEE RIGHT WO CONTRAST REASON FOR STUDY: Pain in right knee Patient stated they felt a pop in the right knee in September 2024 and has had right knee pain since. No surgery TECHNIQUE: Multiplanar, multisequence MRI of the right knee was performed without contrast. COMPARISON: None available FINDINGS: In the medial compartment, the meniscus is intact. Partial-thickness cartilage loss of the femoral condyle. In the lateral compartment, small focal incomplete undersurface tear of the meniscal body inner margin. There is no focal chondrosis or subchondral edema. In the patellofemoral compartment, there is no focal chondrosis or subchondral edema. The cruciate and collateral ligaments are intact. The extensor mechanism is normal. The popliteus tendon is intact. There is no effusion. There are no loose bodies. IMPRESSION: 1. Small, focal, incomplete undersurface inner margin tear of the right lateral meniscal body. 2. Mild medial compartment right knee chondrosis. 3. Intact right knee cruciate and collateral ligaments. THIS IS AN ELECTRONICALLY VERIFIED FINAL REPORT 12/13/2024 7:07 AM - Electronically signed by Didier Echols M.D. T: Report ID: [id number] Reading Location: [id number] Procedure Note Didier Echols MD - 12/13/2024 EXAM DESCRIPTION: MRI KNEE RIGHT WO CONTRAST REASON FOR STUDY: Pain in right knee Patient stated they felt a pop in the right knee in September 2024 and has had right knee pain since. No surgery TECHNIQUE: Multiplanar, multisequence MRI of the right knee wasperformed without contrast. COMPARISON: None available FINDINGS: In the medial compartment, the meniscus is intact.Partial-thickness cartilage loss of the femoral condyle. In the lateral compartment, small focal incomplete undersurface tear ofthe meniscal body inner margin. There is no focal chondrosis or subchondraledema. In the patellofemoral compartment, there is no focal chondrosis orsubchondral edema. The cruciate and collateral ligaments are intact. The extensor mechanismis normal. The popliteus tendon is intact. There is no effusion. There are no loose bodies. IMPRESSION: 1. Small, focal, incomplete undersurface inner margin tear of the right lateral meniscal body. 2. Mild medial compartment right knee chondrosis. 3. Intact right knee cruciate and collateral ligaments. THIS IS AN ELECTRONICALLY VERIFIED FINAL REPORT 12/13/2024 7:07 AM - Electronically signed by Didier Echols M.D. T: Report ID: [id number] Reading Location: [id number] Kiarra Vaughn NP IM MRI PROCEDURES Final Result from Last 3 Months Insurance WORKERS COMPENSATION GENERIC Member Subscriber Plan / Payer (Ef fective 2024-Present) Name:Sarthak Harding Relation to Subscriber:Employee Name:[employer] Address: [address] [place] [address] Payer ID:[id number] Type:WORKERS COMPENSATION [phone] Address: [facility] [address] [place] [address] Care Teams Director Of Recreation Therapy Relationship Specialty Start Date End Date Unknown, Notinfile PCP - General 12/05/24
--- OUTSIDE RECORDS SUMMARY | 2025-01-04 09:52 | XMS_ITS | Patient Health Record ---
Author Organization [facility] Address [address] [place] [address] Care Team Providers Care Evp Managing Director Name Role Phone TamyDidier ewing Unavailable [phone] Harpal Lee Unavailable Unavailable ALLERGIES Allergen (clinical [...] therapist's discretion; HEP Referral Organization [facility] Referring Provider First Name Didier Referring Provider Last Name Tamy Referring Provider Speciality Orthopedic Surgery Referred Provider Specialty Physical The [facility] Referral Priority Routine Reason DIAGNOSES: neck and shoulder strain, neck pain 3 times per week for 3 weeks work conditioning Referral Organization [facility] Referring Provider First Name Didier Referring Provider Last Name Tamy Referring Provider Speciality Orthopedic Surgery Referred Provider Specialty Physical The [facility] Referral Priority Routine MEDICATIONS Medication SIG (Take, Route, Frequency, Duration) Notes Start Date End Date Status Ibuprofen 800 MG 1 tablet with food o r milk as needed Orally every 8 hrs for 90 days 02/29/2024 Active Cyclobenzaprine HCl 10 MG 1 tablet Orall y three times daily as needed for spasms. MAY CAUSE GROGGINESS/DROWSINESS for 30 day(s) 02/29/2024 Active Gabapentin Mickey-Leonardo wayne VITAL SIGNS Height 71 in 04/19/2024 Weight 250 lbs 04/19/2024 BMI 34.86 kg/m2 04/19/2024 Encounters Encounter Location Date Provider Diagnosis [facility], [address] [address] 02/29/2024 Didier Morelos Neck strain S16.1XXA ; Left shoulder strain S46.912A ; Strain of left trapezius muscle, initial encounter S46.812A and Thoracic back pain M54.6 [facility], [address] [address] 03/29/2024 Didier Morelos Strain of other muscles, fascia and tendons at shoulder and upper arm level, left arm, subsequent encounter S46.812D ; Pain in thoracic spine M54.6 ; Strain of left shoulder, subsequent encounter S46.912D and Strain of muscle, fascia and tendon at neck level, subs S16.1XXD [facility], [address] [address] 04/19/2024 Didier Morelos Strain of muscle, fascia [...] to a reasonable degree of medical certainty. [facility] 03/29/2024 Strain of other muscles, fascia and [...] can be returned to regular work duties. [facility] 04/19/2024 Strain of muscle, fascia and tendon at neck level, subs (ICD-10 - S16.1XXD) <b>IMPRESSION:</b> Resolved neck and shoulder strains Resolved back strain, thoracic myofasciitis, trapezius enthesopathy <b>PLAN:</b> It is my opinion the patient has reached MMI regarding his injury of 11/28/2023. He can return to full/unrestricted work duties. He is released from my care. He was strongly encouraged to continue with a home exercise program to maximize strength and endurance to reduce the risk of injury in the future. [facility] 02/29/2024 Left shoulder strain (ICD-10 - S46.912A) [...] to a reasonable degree of medical certainty. [facility] 03/29/2024 Pain in thoracic spine (ICD-10 - [...] can be returned to regular work duties. [facility] 04/19/2024 Strain of other muscles, fascia and tendons at shoulder and upper arm level, left arm, subsequent encounter (ICD-10 - S46.812D) <b>IMPRESSION:</b> Resolved neck and shoulder strains Resolved back strain, thoracic myofasciitis, trapezius enthesopathy <b>PLAN:</b> It is my opinion the patient has reached MMI regarding his injury of 11/28/2023. He can return to full/unrestricted work duties. He is released from my care. He was strongly encouraged to continue with a home exercise program to maximize strength and endurance to reduce the risk of injury in the future. [facility] 02/29/2024 Strain of left trapezius muscle, initial [...] to a reasonable degree of medical certainty. [facility] 03/29/2024 Strain of left shoulder, subsequent encounter [...] can be returned to regular work duties. [facility] 02/29/2024 Thoracic back pain (ICD-10 - M54.6) [...] to a reasonable degree of medical certainty. [facility] 03/29/2024 Strain of muscle, fascia and tendon [...] can be returned to regular work duties. [facility] 02/29/2024 Other <b>IMPRESSION:</b> Neck and shoulder strains [...] to a reasonable degree of medical certainty. [facility] PLAN OF TREATMENT No Information Insurance Providers Payer Name Payer Address Payer Phone Subscriber Number Group Number Insured Name Patient Relationship to Insured Coverage Start Date Coverage End Date [facility] [address] [address] [place] [address] [id number] Vilma Harding Self - patient is the insured 4 MEDICAL (GENERAL) HISTORY Medical History History ICD Code Non-Contributory Denies h/o emotional/psychiatric disorde r Denies h/o drug/chemical dependency Surgical History Surgery Date(Month/Year) Tonsillectomy
== END 2025-01-04 09:36 | disposition home or self-care (01) ==
PROVIDERS: PCP Emergency Medicine
DX: Z01.818 Encounter for other preprocedural examination (principal)
CPT/HCPCS: 93005